=== PATIENT | female | born 1950 | race Caucasian/White ===

== ENCOUNTER → 2022-07-15 13:31 | Outpatient (CLI) | payer MEDICARE, SELFPAY ==
--- NOTE | ~2022-07-15 | XR_ITS ---
EXAMINATION: [id number] INDICATION: Right-sided chest pain after fall TECHNIQUE: A frontal view of the chest and 3 views of the right ribs were obtained. COMPARISON: None. FINDINGS: There are minimal airspace opacities of the left lung base. No pleural effusion or pneumoth orax. The cardiomediastinal silhouette is normal. There is mild cortical irregularity at the anterola teral aspect of the right seventh rib. IMPRESSION: 1. Possible healing right seventh rib fracture. 2. Mild atelectasis of the left lung base. Reviewed, dictated and finalized at location B.
== END ==
PROVIDERS: PCP Clinical Nurse Specialist; Visit Provider Clinical Nurse Specialist
DX: R07.81 Pleurodynia (principal)
CPT/HCPCS: 71101

== ENCOUNTER 2023-06-10 12:29 | Outpatient (CLI) | payer MEDICARE, SELFPAY ==
[2023-06-10 19:11] LABS: Basophils Percent Auto 0.4 % (0.2-1.2); Eosinophils Absolute Auto 0.1 K/mm3 (0-0.3); Eosinophils Percent Auto 1.9 % (0-4.4); Hematocrit 41.7 % (37.0-47.0); Hemoglobin 13.6 g/dL (12.0-15.0); Immature Granulocyte Absolute 0.03 K/mm3 (0.00-0.031); Immature Granulocyte Percent A 0.4 % (0-0.5); Lymphocytes Absolute Auto 2.31 K/mm3 (0.9-3.2); Lymphocytes Percent Auto 31.2 % (18.3-44.2); Mean Corpuscular HGB Conc 32.6 g/dl (32-36); Mean Corpuscular Hemoglobin 30.1 pg (26-34); Mean Corpuscular Volume 92.3 fl (80-100); Mean Platelet Volume 10.1 fl (7.4-10.4); Monocytes Absolute Auto 0.6 K/mm3 (0.1-0.6); Monocytes Percent Auto 7.4 % (2.6-8.5); Neutrophils Absolute Auto 4.4 K/mm3 (1.3-6.7); Neutrophils Percent Auto 58.7 % (45.5-73.1); Platelet Count Result 206 k/mm3 (150-375); Red Blood Count 4.52 M/mm3 (4.2-5.4); Red Cell Distribution Width 12.2 % (11.5-14.5); White Blood Count 7.4 K/mm3 (4.5-10.0)
[2023-06-10 19:58] LABS: Vitamin D 25 Hydroxy 43.6 ng/mL
[2023-06-10 22:20] LABS: Alanine Aminotransferase 27 U/L (6-35); Albumin Level 4.2 g/dL (3.5-5.1); Alkaline Phosphatase 72 U/L (38-126); Anion Gap 6 mmol/L (8-16); Aspartate Amino Transferase 32 U/L (14-36); Bilirubin,Total 0.7 mg/dL (0.2-1.3); Blood Urea Nitrogen 30 mg/dL (7-17); Calcium 9.6 mg/dL (8.4-10.2); Carbon Dioxide 29 mmol/L (22-30); Chloride 103 mmol/L (98-107); Cholesterol 288 mg/dL (0-200); Estimated Glomerular Filt Rate 37; Glucose 102 mg/dL (65-110); HDL Direct 48 mg/dL; LDL Cholesterol Direct 173 mg/dL; Potassium 5.1 mmol/L (3.4-5.0); Sodium 138 mmol/L (137-145); Triglycerides 174 mg/dL (<150)
[2023-06-13 19:38] LABS: Apolipoprotein B 147 mg/dL (<90)
== END 2023-06-10 12:30 | disposition home or self-care (01) ==
LOC: ANHGOSHLAB 12:32
PROVIDERS: PCP Internal Medicine; Visit Provider Nurse Practitioner
DX: E03.9 Hypothyroidism, unspecified (principal); E55.9 Vitamin D deficiency, unspecified; E78.5 Hyperlipidemia, unspecified; I12.9 Hypertensive chronic kidney disease with stage 1 through stage 4 chronic kidney disease, or unspecified chronic kidney disease; N18.9 Chronic kidney disease, unspecified
CPT/HCPCS: 36415; 80053; 80061; 82172; 82306; 84443; 85025

== ENCOUNTER 2023-08-27 00:41 | Day surgery (SDC) | payer MEDICARE, SELFPAY ==
[2023-08-13 13:55] VITALS: BMI 38.3
[2023-08-27 09:53] VITALS: BP 168/95; PULSE 97; RESP 18; TEMP 36.8; O2SAT 100; BMI 39.6
[2023-08-27] MEDS: LACTATED RINGERS 1,000 ML 150 ML IV CONT (10:27)
--- NOTE | 2023-08-27 10:34 | P.PNAN_ITS ---
Anes - Initial Pre Proc Eval Procedure: Operation Date: 08/27/23 11:00 Proposed Procedures p Screening Colonoscopy - Dean Demarco MD Date/Time: 08/27/23 10:34 Surgeon: Dean Demarco MD Pre Op Diagnosis: History of colon polyps Patient Data Age: 73 Gender: F Height: 1.65 m Weight: 107.9 kg Last Vital Signs Temp 98.3 F 08/27/23 09:53 Pulse 97 08/27/23 09:53 Resp 18 08/27/23 09:53 BP 168/95 H 08/27/23 09:53 Pulse Ox 100 08/27/23 09:53 O2 Del Method Room Air 08/27/23 09:53 Allergies Allergy/AdvReac Type Severity Reaction Status Date / Time No Known Allergies Allergy Verified 08/13/23 13:56 Home Medications Medication Instructions Recorded Confirmed Type cholecalciferol (vitamin D3) 25 1,000 unit PO DAILY 09/22/19 08/13/23 History mcg (1,000 unit) capsule omega-3 fatty acids 1,000 mg 1,000 mg PO DAILY 09/22/19 08/13/23 History capsule (Fish Oil Concentrate) levothyroxine 75 mcg tablet 75 mcg PO DAILY #90 tabs 06/10/23 08/13/23 Rx olmesartan 40 mg tablet 40 mg PO DAILY #90 tabs 06/10/23 08/13/23 Rx Patient hx anesthesia problems: none Family hx anesthesia problems: none Results Review: All pre-operative results and documents have been reviewed as part of the pre- operative evaluation. [facility] Past Medical History Medical History (Updated 07/02/23 @ 10:11 by Sunil Guzman MD) CKD (chronic kidney disease) Hypertension Hypothyroidism Screening for colon cancer Family History Family History Mother Hypertension Heart attack Sibling Hypertension Arthrogryposis Social History Social History (Updated 07/02/23 @ 10:01 by Sammi Dumont MA) Smoking status: Never smoker Alcohol intake: current Alcohol use details: 1 glass of wine every 3 months Substance use: never Substance use type: does not use Lack of Transportation: No Lack of Food: Never True Current Housing: I Have Housing Concerned About Future Housing: No Difficulty Paying Gas/Electric Bills: No Difficulty Paying for Meds: No Currently Unemployed: No Education: Associate Degree Difficulty w/ Childcare or Family Care: No Living arrangements: with family Gender identity (if verbalized by the patient): Female Spiritual care concerns: No Anes - Eval Final PreProcedure Day of Procedure 08/27/23 10:34 Patient weight: morbidly obese Heart: regular rate and rhythm Lungs: clear to auscultation Airway: Mallampati scale class III Neurological: alert and oriented Last oral intake: >/= 8 hours ASA classification: III Emergent: no Anesthetic plan: proceed Anesthesia type and monitoring: general GIVS and standard monitoring Results Review: All pre-operative results and documents have been reviewed as part of the pre- operative evaluation. Informed Consent: The patient's anesthetic plan and its attendant risks and benefits were discussed with the patient/family/POA. Questions were solicited and answers provided to the satisfaction of the patient/family/POA.
--- NOTE | 2023-08-27 11:04 | PM.HPGS ---
History of Present Illness History of Present Illness Consent: Risks, benefits, and alternatives have been discussed and questions answered. Patient agrees to proceed with procedure. Chief complaint: History of colon polyps Narrative: Humera Nichole is a 73 year old female presents for colonoscopy. Patient reports colonoscopy in 2018 was performed in [place]. Patient apparently had multiple relatively small polyps. Patient advised to have follow-up exam after 5 years. Patient reports current weight appetite and bowel movements are normal. Patient denies abdominal pain. She has had no bleeding. Family history noncontributory. Review of Systems Review of Systems: Review of systems noncontributory. [facility] Past Medical History Medical History (Updated 07/02/23 @ 10:11 by Sunil Guzman MD) CKD (chronic kidney disease) Hypertension Hypothyroidism Screening for colon cancer Family History Family History Mother Hypertension Heart attack Sibling Hypertension Arthrogryposis Social History Social History (Updated 07/02/23 @ 10:01 by Sammi Dumont MA) Smoking status: Never smoker Alcohol intake: current Alcohol use details: 1 glass of wine every 3 months Substance use: never Substance use type: does not use Lack of Transportation: No Lack of Food: Never True Current Housing: I Have Housing Concerned About Future Housing: No Difficulty Paying Gas/Electric Bills: No Difficulty Paying for Meds: No Currently Unemployed: No Education: Associate Degree Difficulty w/ Childcare or Family Care: No Living arrangements: with family Gender identity (if verbalized by the patient): Female Spiritual care concerns: No Meds Home Medications and Allergies Home Medications Medication Instructions Recorded Confirmed Type cholecalciferol (vitamin D3) 25 1,000 unit PO DAILY 09/22/19 08/13/23 History mcg (1,000 unit) capsule omega-3 fatty acids 1,000 mg 1,000 mg PO DAILY 09/22/19 08/13/23 History capsule (Fish Oil Concentrate) levothyroxine 75 mcg tablet 75 mcg PO DAILY #90 tabs 06/10/23 08/13/23 Rx olmesartan 40 mg tablet 40 mg PO DAILY #90 tabs 06/10/23 08/13/23 Rx Allergies Allergy/AdvReac Type Severity Reaction Status Date / Time No Known Allergies Allergy Verified 08/13/23 13:56 Vital Signs Vital Signs - 24 hr 08/27/23 09:53 Temperature 98.3 F Pulse Rate 97 Respiratory Rate 18 Blood Pressure 168/95 H Pulse Oximetry 100 Oxygen Delivery Room Air Exam Narrative: Physical exam reveals patient to be alert. Vital signs stable. HEENT exam is unremarkable. Patient is anicteric. Lungs are clear to auscultation and percussion. Heart is without murmur or extra sounds. Abdomen bowel sounds are present soft nontender with no organomegaly. Digital external rectal exam is normal. Assessment and Plan Assessment and plan (1) Screening for colon cancer: Code(s): Z12.11 - Encounter for screening for malignant neoplasm of colon Status: Acute Assessment and Plan: Patient presents for screening colonoscopy. She states she had colon polyps removed from previous colonoscopy in [place] 5 years ago. Plan for surveillance colonoscopy at this time. Further recommendations may be given after endoscopy.
[2023-08-27 11:35] VITALS: BP 108/59; PULSE 70; RESP 18; O2SAT 97
[2023-08-27 11:45] VITALS: BP 123/71; PULSE 62; RESP 17; O2SAT 99
[2023-08-27 11:55] VITALS: BP 165/101; PULSE 63; RESP 20; O2SAT 96
== END 2023-08-27 12:13 | disposition home or self-care (01) ==
PROVIDERS: PCP Nurse Practitioner; Visit Provider Internal Medicine Gastroenterology
PROC: 0DJD8ZZ Inspection of Lower Intestinal Tract, Via Natural or Artificial Opening Endoscopic (ICD-10-PCS; CPT 45378; principal; 2023-08-27 11:00)
DX: Z12.11 Encounter for screening for malignant neoplasm of colon (principal); K63.5 Polyp of colon; K64.8 Other hemorrhoids; K57.30 Diverticulosis of large intestine without perforation or abscess without bleeding; I12.9 Hypertensive chronic kidney disease with stage 1 through stage 4 chronic kidney disease, or unspecified chronic kidney disease; N18.9 Chronic kidney disease, unspecified; E03.9 Hypothyroidism, unspecified; E66.01 Morbid (severe) obesity due to excess calories; Z68.39 Body mass index [BMI] 39.0-39.9, adult
CPT/HCPCS: 45385; 88305; J2704; J7120

== ENCOUNTER → 2023-11-06 09:55 | Outpatient (CLI) | payer MEDICARE, SELFPAY ==
--- NOTE | ~2023-11-06 | US_ITS ---
US renal BI 11/06/2023 10:08 Procedure: Realtime transabdominal ultrasound of the kidneys and bladder. Indication: Chronic kidney disease Comparison: No prior studies for comparison. Findings: Renal echotexture is normal bilaterally without hydronephrosis, contour deforming mass or r enal calculus. The right kidney measures 8.5 cm and left kidney measures 9.8 cm. There is bilateral r enal cortical thinning. Bladder within normal limits. Impression: 1: Renal atrophy. Reviewed, dictated and finalized at location A. 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
== END ==
PROVIDERS: PCP Nurse Practitioner; Visit Provider Internal Medicine Nephrology
DX: N26.1 Atrophy of kidney (terminal) (principal); N18.32 Chronic kidney disease, stage 3b
CPT/HCPCS: 76775

== ENCOUNTER 2023-12-22 14:16 | Outpatient (CLI) | payer MEDICARE, SELFPAY ==
--- NOTE | ~2023-12-22 | XR_ITS ---
EXAMINATION: XR lumbar spine 2-3V DATE: 12/22/2023 14:39 INDICATION: Low back pain. Right-sided sciatica. TECHNIQUE: 3 views of lumbar spine were obtained. COMPARISON: None. FINDINGS: There is 3 mm retrolisthesis of T12 on L1 an 8 mm anterolisthesis of L4 on L5. Vertebral thi dy heights are normal. There is severely decreased disc height at T12-L1, mildly decreased disc heigh t at L2-L3 and L3-L4, and severely decreased disc height at L4-L5 and L5-S1. There is multilevel trav re facet joint osteoarthritis. IMPRESSION: 1. Severe lumbar spondylosis. Reviewed, dictated and finalized at location A. 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
== END 2023-12-22 14:17 ==
LOC: GOSHIMG 14:19
PROVIDERS: PCP Nurse Practitioner; Visit Provider Nurse Practitioner
DX: G89.29 Other chronic pain (principal); M54.41 Lumbago with sciatica, right side; M54.42 Lumbago with sciatica, left side; M47.896 Other spondylosis, lumbar region
CPT/HCPCS: 72100

== ENCOUNTER 2024-08-22 11:44 | Outpatient (CLI) | payer MEDICARE, SELFPAY ==
--- NOTE | ~2024-08-22 | XR_ITS ---
Lumbosacral Spine: AP and lateral views Clinical History: Pain COMPARISON: 12/22/2023 Findings: The normal lordotic curve is maintained. No fracture evident. Stable grade 1 anterolisthesi s of L3 over L4. Stable 14 mm anterolisthesis of L4 over L5. Advanced degenerative disc narrowing at L4-L5 and L5-S1 present. Severe facet arthropathy throughout the lumbar spine present. The sacroiliac joints are normally outlined. Impression: 14 mm anterolisthesis of L4 over L5, similar to prior exam. Stable mild grade 1 anterolisthesis of L4 over L5. Additional advanced degenerative changes, as above, similar to prior exam. Reviewed, dictated and finalized at location . Impression: 14 mm anterolisthesis of L4 over L5, similar to prior exam. Stable mild grade 1 anterolisthesis of L4 over L5. Additional advanced degenerative changes, as above, similar to prior exam.
== END 2024-08-22 11:45 | disposition home or self-care (01) ==
LOC: GOSHIMG 11:46
PROVIDERS: PCP Nurse Practitioner; Visit Provider Neurological Surgery
DX: M54.16 Radiculopathy, lumbar region (principal); M43.16 Spondylolisthesis, lumbar region; M51.369 Other intervertebral disc degeneration, lumbar region without mention of lumbar back pain or lower extremity pain
CPT/HCPCS: 72110

== ENCOUNTER 2025-06-28 11:54 | Outpatient (CLI) | payer MEDICARE, SELFPAY ==
--- NOTE | ~2025-06-28 | MM_ITS ---
EXAMINATION: MM screening michelle BI w gela HISTORY: Screening mammogram TECHNIQUE: Craniocaudal and mediolateral oblique 3-D tomosynthesis images were obtained and synthetic 2-D images were generated. CAD analysis was submitted and interpreted. COMPARISON: No prior mammogram is available for comparison at this institution. BREAST PARENCHYMAL COMPOSITION:Not Dense. There are scattered areas of fibroglandular density. FINDINGS: No suspicious mass, calcification, or architectural distortion are identified in either breast to suggest malignancy. There has been no suspicious interval change. IMPRESSION: No mammographic evidence of malignancy. Recommend routine screening mammography in one year. BI-RADS Category 1: Negative Reviewed, dictated and finalized at location .
--- NOTE | ~2025-06-28 | DEXA_ITS ---
Bone Density Report Name: GALINA HUDSON Age: 75 Sex: Female Ethnicity: White Date of : 1950 Indication: postmenopausal; screening for osteoporosis; height loss; Referring Provider: Kaitlin Gómez Study: Bone densitometry was performed. Exam Date: June 28, 2025 Accession number: [id number] Bone Density: Region BMD T-score Z-score Classification AP Spine(L2, L3, L4) 1.162 0.8 3.3 Normal Femoral Neck (Left) 0.672 -1.6 0.5 Osteopenia Total Hip (Left) 0.903 -0.3 1.5 Normal Femoral Neck (Right) 0.744 -0.9 1.1 Normal Total Hip (Right) 0.920 -0.2 1.6 Normal Femoral Neck Mean 0.708 -1.3 0.8 Osteopenia Total Hip Mean 0.912 -0.2 1.5 Normal World Health Organization criteria for BMD impression classify patients as: Normal (T-score at or above -1.0), Osteopenia (T-score between -1.0 and -2.5), or Osteoporosis (T-score at or below -2.5). 10-year Fracture Risk(1): Major Osteoporotic Fracture 10% Hip Fracture 1.9% Reported Risk Factors: [place] (), Neck BMD=0.672, BMI=39.7 (1) FRAX(R) Version 3.08. Fracture probability calculated for an untreated patient. Fracture probability may be lower if the patient has received treatment. Clinical Information Provided by Patient: Has used the following medications: Vitamin D Patient maximum height was 67 Menopause Age: 55 No regular weight bearing exercise Onset of menses at age 12 Number of children 2 Impression: The patient has low bone mass, based on the Left Femoral Neck T-score. Discussion: BONE DENSITY IS LOW AT ONE OR MORE SKELETAL SITES. This patient's lowest T-score is low at one or more skeletal sites. It meets the World Health Organization's (WHO) criteria for ?low bone mass? (T-score between -1.0 and -2.5). The patient's 10-year risk of fracture as calculated by FRAX is less than the threshold where pharmacological therapy is recommended by the National Osteoporosis Foundation (NOF). However, all treatment decisions require clinical judgment and consideration of individual patient factors, including patient preferences, comorbidities, previous drug use, risk factors not captured in the FRAX model (e.g., frailty, falls, vitamin D deficiency, increased bone turnover, interval significant decline in bone density) and possible under or overestimation of fracture risk by FRAX. The patient should follow a healthful lifestyle (good nutrition with adequate calcium and vitamin D, and appropriate weight-bearing exercise). Follow-Up: Consider repeating this study in 2 to 3 years to reassess this patient's status, or sooner if there is some new clinical indication. Reported by: MIAH on 06/28/2025 12:34:00 PM. Reviewed, dictated and finalized at location A.
== END 2025-06-28 11:55 | disposition home or self-care (01) ==
LOC: CHSIMG 11:57
PROVIDERS: PCP Nurse Practitioner; Visit Provider Nurse Practitioner
DX: Z12.31 Encounter for screening mammogram for malignant neoplasm of breast (principal); Z78.0 Asymptomatic menopausal state; M85.89 Other specified disorders of bone density and structure, multiple sites
CPT/HCPCS: 77063; 77067; 77080

== ENCOUNTER 2025-09-25 10:50 | Outpatient (CLI) | payer MEDICARE, SELFPAY ==
--- NOTE | ~2025-09-25 | XR_ITS ---
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 Findings: No acute fracture or malalignment. No significant degenerative changes. Soft tissues unremarkable. Impression: No acute fracture or malalignment. Reviewed, dictated and finalized at location P. 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
== END 2025-09-25 10:51 | disposition home or self-care (01) ==
PROVIDERS: PCP Nurse Practitioner; Visit Provider Nurse Practitioner Family
DX: M25.552 Pain in left hip (principal)
CPT/HCPCS: 73502

== ENCOUNTER 2025-10-13 10:34 | Outpatient (NON) | payer MEDICARE, SELFPAY ==
[2025-10-13 13:23] LABS: Add Urine Microscopic? YES; Appearance Urine Turbid (Clear); Glucose Urine UA Negative (Negative); Leukocyte Esterase Ur 2+ LEU/UL (Negative); Need Manual Microscopic Reviewed; Nitrate Urine Negative (Negative); Specific Grav Ur 1.020 (1.001-1.035)
== END 2025-10-13 10:35 | disposition home or self-care (01) ==
LOC: ANHGOSHLAB 10:35
PROVIDERS: PCP Nurse Practitioner
DX: N39.0 Urinary tract infection, site not specified (principal)
CPT/HCPCS: 81001